=== PATIENT | male | born 1985 | race Caucasian/White ===

== ENCOUNTER 2016-11-14 14:08 | Emergency (ER) | payer OTHER ==
[~2016-11-14] VITALS: Ht 188 cm; Wt 192.8 kg
--- NOTE | ~2016-11-14 | CR126 ---
[facility] A Service of [facility] RADIOLOGY TEXT RESULTS PATIENT: GIOVANNI TAYLOR LOCATION: [facility] #: [id number] : 81 UNIT #: [id number] AGE: [address]: Neli Cedillo SEX: M ORDER DR: [id number] [facility] [address] [place], [place] [address] [id number] E MR#: [id number] Acc #: [id number] NAME: GIOVANNI TAYLOR. : 1985 SEX: M STUDY DATE/TIME: 11/14/2016 17:00 UNIT: [facility] ROOM: STUDY DESCRIPTION: CR Foot Complete Min 3 View Lt Attending Physician: Neli Cedillo P.A.-C. Ordering Physician: Neli Cedillo P.A.-C. Primary Care Physician: Marquez Young D.M.D. MEDICAL IMAGING REPORT This report is preliminary unless electronic signature is present EXAM Left foot 3 views HISTORY Foot and ankle pain and swelling after falling down steps today. FINDINGS 3 views of the left foot demonstrates fractures involving the second, third and fourth metatarsal heads with intraarticular extension of the third and fourth metatarsal fractures. No significant angulation. Mild soft tissue swelling over the forefoot. Bipartite tibial hallux sesamoid. IMPRESSION Fractures involving the distal aspects of the second, third and fourth metatarsals with a fracture of the second metatarsal neck and fractures involving the third and fourth metatarsal head with intraarticular extension of the third and fourth metatarsal fractures. No significant displacement or angulation. There is associated soft tissue swelling. Dictated by... Faby Pruitt M.D. THIS IS AN ELECTRONICALLY VERIFIED REPORT Faby Pruitt M.D. at 11/15/2016 6:53 PM TORIBIO/ze TD: 11/14/2016 23:48 JOB #: [id number] MEDICAL IMAGING REPORT [facility] A Service [facility] RADIOLOGY TEXT RESULTS PATIENT: GIOVANNI TAYLOR LOCATION: [facility] #: [id number] : [birth year] UNIT #: [id number] AGE: [address]: Neli Cedillo SEX: M ORDER DR: Page 1 of 1 COPY
--- NOTE | ~2016-11-14 | CR20 ---
[facility] A Service of [facility] RADIOLOGY TEXT RESULTS PATIENT: GIOVANNI TAYLOR LOCATION: [facility] : 81 UNIT #: [id number] AGE: [address]: Neli Cedillo SEX: M ORDER DR: [id number] [facility] [address] [place], [place] [address] [id number] E MR#: [id number] Acc #: [id number] NAME: GIOVANNI TAYLOR. : 1985 SEX: M STUDY DATE/TIME: 11/14/2016 16:57 UNIT: [facility] ROOM: STUDY DESCRIPTION: CR Ankle Min 3 Views Lt Attending Physician: Neli Cedillo P.A.-C. Ordering Physician: Neli Cedillo P.A.-C. Primary Care Physician: Marquez Young D.M.D. MEDICAL IMAGING REPORT This report is preliminary unless electronic signature is present EXAM Left ankle, 3 views. HISTORY Foot and ankle swelling. Fell down steps and twisted ankle today. FINDINGS Three views of the left ankle demonstrates diffuse soft tissue swelling about the ankle. Ankle mortise appears intact. Lucency noted in the proximal base of the fifth metatarsal does not have the typical appearance of fracture and may be developmental. IMPRESSION Diffuse soft tissue swelling about the ankle. No definitive fracture. Lucency in the base of the fifth metatarsal appears to be developmental, and does not have the typical appearance of a fracture. Correlate with targeted physical findings. Dictated by... Faby Pruitt M.D. THIS IS AN ELECTRONICALLY VERIFIED REPORT Faby Pruitt M.D. at 11/15/2016 6:53 PM Carlos TD: 11/14/2016 23:37 JOB #: [id number] MEDICAL IMAGING REPORT Page 1 of 1 COPY
[~2016-11-14 14:08] MED LIST: KEFLEX500 MG PO; MEDROL4 MG/DOSE- PO; NO MEDICATIONS; NORCO 5/325 TAB1 TAB PO; PREDNISONE5 M1 PO
== END 2016-11-14 18:30 | disposition home or self-care (01) ==
LOC: CFTX 14:08 → CED 14:08 → CFTX 17:15
DX: S92.322A Displaced fracture of second metatarsal bone, left foot, initial encounter for closed fracture (principal); S92.332A Displaced fracture of third metatarsal bone, left foot, initial encounter for closed fracture; S92.342A Displaced fracture of fourth metatarsal bone, left foot, initial encounter for closed fracture; Z87.891 Personal history of nicotine dependence; W18.30XA Fall on same level, unspecified, initial encounter; Y92.69 Other specified industrial and construction area as the place of occurrence of the external cause
CPT/HCPCS: 29515; 73610; 73630; 99283